=== PATIENT | female | born 1960 | race Caucasian/White ===

== ENCOUNTER 2017-04-23 20:00 | Emergency (ER) | payer BC ==
[2017-04-23 20:20] VITALS: BP 118/72; PULSE 69; TEMP 97.8; BMI 27.2
[2017-04-23] MEDS ORDERED: predniSONE 20 MG TABLET (UD) PO ONE (21:04)
[2017-04-23] MEDS ORDERED: predniSONE 20 MG TABLET (UD) ONE (21:11)
--- NOTE | 2017-04-23 21:14 | PDOC ---
History of Present Illness - General Chief Complaint: Cold Symptoms Stated Complaint: COLD SYMPTOMS Time Seen by Provider: 04/23/17 20:10 History Source: Patient, Spouse Exam Limitations: No Limitations - History of Present Illness Initial Comments: 04/23/17 21:03 Sent here with complaints of persistent cough. States was diagnosed with influenza week ago has residual cough with pleuritic type chest pain. Timing/Duration: reports: constant, intermittent Severity: reports: mild, moderate Past History - Travel Traveled outside of the country in the last 30 days: No Close contact w/someone who was outside of country & ill: No - Past Medical History Allergies/Adverse Reactions: Allergies Allergy/AdvReac Type Severity Reaction Status Date / Time No Known Allergies Allergy Verified 07/25/14 17:37 Home Medications: Ambulatory Orders Thyroid,Pork [[place] Thyroid] 30 mg PO ASDIR 04/23/17 Asthma: Yes Cardiac Disorders: Yes (A-fib) COPD: No GI Disorders: Yes (gastritis) Hypercholesterolemia: Yes Thyroid Disease: Yes (Hypothyroid) - Surgical History Appendectomy: Yes Cardiac Surgery: Yes (cath) - Suicide/Smoking/Psychosocial Hx Smoking Status: No Smoking History: Never smoked Have you smoked in the past 12 months: No Number of Cigarettes Smoked Daily: 0 Information on smoking cessation initiated: No Hx Alcohol Use: No Drug/Substance Use Hx: No Substance Use Type: None Review of Systems - Review of Systems Able to Perform ROS?: Yes Is the patient limited Pashto proficient: Yes Constitutional: Yes: Symptoms Reported, See HPI, Malaise. No: Fever HEENTM: Yes: See HPI. No: Symptoms Reported Respiratory: Yes: See HPI Musculoskeletal: No: Symptoms Reported All Other Systems: Reviewed and Negative *Physical Exam - Vital Signs Last Vital Signs Temp Pulse Resp BP Pulse Ox 97.8 F 69 20 118/72 96 04/23/17 20:17 04/23/17 20:17 04/23/17 20:17 04/23/17 20:17 04/23/17 20:17 - Physical Exam General Appearance: Yes: Nourished, Appropriately Dressed HEENT: positive: ILAN, Normal ENT Inspection, TMs Normal, Pharynx Normal, Nasal Congestion, Rhinorrhea (clear ). negative: Tonsillar Exudate, Tonsillar Erythema Neck: positive: Supple. negative: Tender, Lymphadenopathy (R) Respiratory/Chest: positive: Lungs Clear (clear but coarse), Normal Breath Sounds. negative: Wheezing Gastrointestinal/Abdominal: positive: Normal Bowel Sounds, Soft. negative: Tender Extremity: positive: Normal Capillary Refill Integumentary: positive: Dry, Warm, Pale Neurologic: positive: campaign coordinator II-XII NML intact, Fully Oriented, Alert, Normal Mood/ Affect, Normal Response Progress Note - Progress Note Progress Note: Chest x-ray negative for infiltrates or pneumonia. Patient refused prednisone cough, will not use albuterol as patient's suffers from SVT and atrial fibrillation. Reviewed need to follow-up with physician tomorrow for any potential treatments or other medications appropriate for her care. Patient understands to continue [id number] and home remedies for persistent cough status post influenza *DC/Admit/Observation/Transfer Diagnosis at time of Disposition: Cough - Discharge Dispostion Disposition: HOME Condition at time of disposition: Stable Admit: No - Referrals Referrals: Lachelle Pineda [Primary Care Provider] - - Patient Instructions Printed Discharge Instructions: DI for Common Cold Additional Instructions: Rest, drink lots of fluids: Teas, water, soups, Pedialyte Saltwater gargles Steamy showers/seem to face break up mucus Avoid contact with others until fevers and cough resolved Lots of handwashing and good hygiene Continue [id number] medications for symptomatic relief Tylenol or Motrin for fever and pain Followup with private physician in one to 2 days as needed Return to emergency department for worsened symptoms, fevers, dehydration - Post Discharge Activity Forms/Work/School Notes: Back to Work
--- NOTE | 2017-04-23 21:31 | PDOC ---
Rapid Medical Evaluation Time Seen by Provider: 04/23/17 20:10 Medical Evaluation: Allergies Allergy/AdvReac Type Severity Reaction Status Date / Time No Known Allergies Allergy Verified 07/25/14 17:37 04/23/17 20:11 Pt c/o: cough x 1 week, no fever Pt on brief exam: lcta Pt ordered for : none Pt to proceed to the ED Discharge Disposition - Diagnosis Cough - Referrals - Patient Instructions - Post Discharge Activity
== END 2017-04-23 21:35 | disposition home or self-care (01) ==
LOC: JERFT 20:00
DX: J00 Acute nasopharyngitis [common cold] (principal); E78.00 Pure hypercholesterolemia, unspecified; E03.9 Hypothyroidism, unspecified; I48.91 Unspecified atrial fibrillation; Z98.61 Coronary angioplasty status; Z87.19 Personal history of other diseases of the digestive system
CPT/HCPCS: 71046-TC-FY; 99281-25

== ENCOUNTER 2018-11-12 01:43 | Emergency (ER) | payer BC ==
--- NOTE | 2018-11-12 02:58 | PDOC ---
History of Present Illness - General Stated Complaint: URINARY PROBLEM - History of Present Illness Initial Comments: 11/12/18 02:53 58 y/o/f here for pain with urination that started around 7pm last night. Patient states that her pain has improved now but she admits to some nausea and chills. She denies seeing any blood in her urine. She states at its worse the pain is a 9/10. She denies any new chest pain, SOB, dizziness, vomiting, diarrhea, or other symptoms. PMHx: Hypothyroidism, kidney stones SHx: Appendectomy, 2 C-sections, partial hysterectomy Social: denies alcohol and tobacco use Past History - Past Medical History Allergies/Adverse Reactions: Allergies Allergy/AdvReac Type Severity Reaction Status Date / Time amoxicillin Allergy Verified 11/12/18 03:31 Home Medications: Ambulatory Orders Ezetimibe 10 mg PO DAILY 11/12/18 Nitrofurantoin Macrocrystal [Nitrofurantoin] 100 mg PO DAILY #5 capsule Ranitidine HCl 75 mg PO PRN PRN 11/12/18 Asthma: Yes Cardiac Disorders: Yes (A-fib) COPD: No GI Disorders: Yes (gastritis) Hypercholesterolemia: Yes Thyroid Disease: Yes (Hypothyroid) - Surgical History Appendectomy: Yes Cardiac Surgery: Yes (cath) - Suicide/Smoking/Psychosocial Hx Smoking Status: No Smoking History: Never smoked Have you smoked in the past 12 months: No Number of Cigarettes Smoked Daily: 0 Hx Alcohol Use: No Drug/Substance Use Hx: No Substance Use Type: None Review of Systems - Review of Systems Constitutional: Yes: Chills. No: Fever HEENTM: No: Nose Congestion, Throat Pain Respiratory: No: Cough, Shortness of Breath Cardiac (ROS): No: Chest Pain, Lightheadedness ABD/GI: Yes: Nausea. No: Diarrhea, Vomiting : Yes: Dysuria. No: Hematuria Musculoskeletal: No: Back Pain Integumentary: No: Rash Neurological: No: Headache, Numbness *Physical Exam - Physical Exam General Appearance: Yes: Nourished, Appropriately Dressed HEENT: positive: EOMI, Normal Voice, Symmetrical Neck: positive: Trachea midline, Supple Respiratory/Chest: positive: Lungs Clear, Normal Breath Sounds. negative: Accessory Muscle Use Cardiovascular: positive: Regular Rhythm, Regular Rate, S1, S2, Other (pacemaker ) Gastrointestinal/Abdominal: positive: Tender (mild suprapubic tenderness to palpation) Extremity: positive: Normal Capillary Refill Integumentary: positive: Normal Color Neurologic: positive: Fully Oriented, Alert, Motor Strength 5/5 Medical Decision Making - Medical Decision Making 11/12/18 02:58 -58 y/o/f here for pain with urination that started around 7pm last night. Patient states that her pain has improved now but she admits to some nausea and chills. She denies seeing any blood in her urine. -Workup with UA, Urine culture. 11/12/18 04:12 -Ua positive for UTI. Will treat with Macrobid and send patient home with prescription for macrobid. *DC/Admit/Observation/Transfer Diagnosis at time of Disposition: UTI (urinary tract infection) Qualifiers: Urinary tract infection type: site unspecified Hematuria presence: without hematuria Qualified Code(s): N39.0 - Urinary tract infection, site not specified - Discharge Dispostion Disposition: HOME Condition at time of disposition: Stable - Prescriptions Prescriptions: Nitrofurantoin Macrocrystal [Nitrofurantoin] 100 mg PO DAILY #5 capsule - Referrals Referrals: Lachelle Pineda [Primary Care Provider] - - Patient Instructions Printed Discharge Instructions: DI for Urinary Tract Infection (UTI) Additional Instructions: If you have worsening pain, fever, vomiting, notice blood in your urine or other concerning symptoms please return to the ED. Please follow up with your primary care doctor within the next week. - Post Discharge Activity
[2018-11-12 03:40] LABS: EPI CELLS 0.4 /HPF (0-5/HPF); HYALINE CASTS 7 /lpf (0-8); PH,URINE 5.5 (5.0-8.0); URINE APPEARANCE CLEAR; URINE BILIRUBIN NEGATIVE (NEGATIVE); URINE COLOR YELLOW; URINE GLUCOSE (UA) NEGATIVE (NEGATIVE); URINE KETONE NEGATIVE (NEGATIVE); URINE LEUK ESTERASE 2+ (NEGATIVE); URINE NITRITE NEGATIVE (NEGATIVE); URINE PROTEIN NEGATIVE (NEGATIVE); URINE RBC 2 /hpf (0-4); URINE UROBILINOGEN 0.2 mg/dL (0.2-1.0); URINE WBC 58 /hpf (0-5)
[2018-11-12 03:41] VITALS: BP 104/68; PULSE 69; TEMP 97.4; BMI 26.0
[2018-11-12] MEDS ORDERED: NITROFURANTOIN MACROCRYSTAL 50 MG CAPSULE (FP) PO SCH (04:15)
[2018-11-12] MEDS ORDERED: NITROFURANTOIN MACROCRYSTAL 50 MG CAPSULE (FP) ONE (04:19)
--- NOTE | 2018-11-12 04:39 | PDOC ---
Attending Attestation - Resident Resident Name: Crystal Mckinney - ED Attending Attestation I have performed the following: I have examined & evaluated the patient, The case was reviewed & discussed with the resident, I agree w/resident's findings & plan, Exceptions are as noted - HPI HPI: 11/12/18 08:07 58F here with dysuria from last night a/w nausea but no vomiting. Endorses chills but no measured fevers. No other complaints. - Physicial Exam PE: 11/12/18 08:08 Agree with exam as documented by resident - Medical Decision Making 11/12/18 08:08 +UA no complicating features dc with abx
== END 2018-11-12 04:34 | disposition home or self-care (01) ==
LOC: JER 01:43
DX: N39.0 Urinary tract infection, site not specified (principal); I48.91 Unspecified atrial fibrillation; E03.9 Hypothyroidism, unspecified; J45.909 Unspecified asthma, uncomplicated; E78.00 Pure hypercholesterolemia, unspecified; K29.70 Gastritis, unspecified, without bleeding
CPT/HCPCS: 81003; 87086; 87186; 99283-25